=== PATIENT | female | born 1970 | race Caucasian/White ===

== ENCOUNTER 2016-10-13 09:12 | Emergency (ER) | payer BC ==
[~2016-10-13] VITALS: Ht 165.1 cm; Wt 84.5 kg
[~2016-10-13 09:12] MED LIST: KRILL OIL 1,001 EACH PO; Protonix PO; VITAMIN D; VITAMIN E
[2016-10-13 10:22] LABS: HEMATOCRIT 39.2 % (36.0-46.0); MCH 30.6 PG (29.0-34.0); MCHC 34.9 G/DL (30.0-36.0); MCV 87.5 FL (83-99); PLATELET COUNT 276 K/uL (156-360); RBC DIS.WIDTH-CV 11.7 % (11.8-14.6); RBC DIS.WIDTH-SD 36.7 % (39-53); RED BLOOD COUNT 4.48 M/uL (3.80-5.20); WHITE BLOOD COUNT 7.2 K/uL (4.1-10.2)
[2016-10-13 10:27] LABS: CHLORIDE 106 mEq/L (99-109); POTASSIUM 3.8 mEq/L (3.7-5.4); SODIUM 141 mEq/L (136-147)
[2016-10-13 10:29] LABS: GLUCOSE 91 mg/dL (70-99)
[2016-10-13 10:30] LABS: ANION GAP 10 MEQ/L (2-14)
[2016-10-13 10:31] LABS: TOTAL BILIRUBIN 0.6 mg/dL (0.0-1.0)
[2016-10-13 10:32] LABS: ALKALINE PHOSPHATASE 51 IU/L (3-129)
[2016-10-13 10:33] LABS: GFR ESTIMATE (CALCULATED) > 59 mL/min/
[2016-10-13 10:34] LABS: UREA NITROGEN (BUN) 8 mg/dL (9-23)
[2016-10-13 10:36] LABS: LIPASE 27 U/L (1.0-51.0)
[2016-10-13 10:39] LABS: TROP-I INTERPRETATION NEGATIVE; TROPONIN-I < 0.01 ng/mL (0.0-0.30)
[2016-10-13] MEDS ORDERED: PRILOSEC20 MG PO (12:08)
[2016-10-13 12:16] VITALS: BP 134/79
[2016-10-13 12:20] LABS: ADD MIUA? YES; BILIRUBIN NEGATIVE; BLOOD NEGATIVE; COLOR YELLOW ((YELLOW)); GLUCOSE (STRIP) NEGATIVE; KETONES NEGATIVE; LEUKOCYTES SMALL; NITRITE NEGATIVE; PROTEIN (STRIP) NEGATIVE; SPECIFIC GRAVITY 1.031 (1.000-1.030); UROBILINOGEN 0.2 MG/DL (0.2-1.0)
[2016-10-13 12:42] LABS: BACTERIA NONE SEEN /HPF; EPITHELIAL CELLS 2+ /HPF; MUCUS TRACE /LPF; RED BLOOD CELLS 0-5 /HPF (0-5)
== END 2016-10-13 12:17 | disposition home or self-care (01) ==
LOC: EXP 09:12 → EME 09:12 → EXP 12:17
PROVIDERS: Nurse Practitioner Family
DX: K21.0 Gastro-esophageal reflux disease with esophagitis (principal); Z88.1 Allergy status to other antibiotic agents; Z86.010 Personal history of colon polyps
CPT/HCPCS: 71020; 74177; 80053; 81003; 83690; 84484; 85027; 93005; 99281; 99285; J7030